=== PATIENT | male | born 1980 | race Caucasian/White ===

== ENCOUNTER 2020-03-08 03:55 | Emergency (ER) | payer MEDICAID ==
[~2020-03-08] VITALS: Ht 165.1 cm; Wt 79.4 kg
[2020-03-08 04:03] VITALS: BP 136/71
[2020-03-08] MEDS ORDERED: HYDROcodone/APAP 5/325 MG 1 TAB TAB PO ONE (06:10)
[2020-03-08] MEDS ORDERED: FLUORESCEIN OPTH STRIP 1 MG OP ONE (06:10)
[2020-03-08] MEDS ORDERED: TETRACAINE HCL/PF 0.5% OPTH 4 ML BTL OP ONE (06:10)
[2020-03-08] MEDS ORDERED: ERYTHROMYCIN 0.5% OPTH OINT 1 GM TUBE OP ONE (06:10)
[2020-03-08 07:00] VITALS: BP 134/78
== END 2020-03-08 07:00 | disposition home or self-care (01) ==
LOC: MED 03:55
DX: H57.11 Ocular pain, right eye (principal); H02.843 Edema of right eye, unspecified eyelid; Z71.6 Tobacco abuse counseling
CPT/HCPCS: 99291

== ENCOUNTER 2021-05-12 03:04 | Emergency (ER) | payer MEDICAID ==
[~2021-05-12] VITALS: Ht 165.1 cm; Wt 78.0 kg
[2021-05-12 03:14] VITALS: BP 131/77
--- NOTE | 2021-05-12 03:15 | NUR ---
SEE COMPLETE ASSESSMENT. PATIENT AMBUALTED TO LOBBY WITH STEADY GAIT.
[2021-05-12] MEDS ORDERED: SULF-59 PO (04:20)
[2021-05-12] MEDS ORDERED: BETA1CRE5 TP (04:20)
[2021-05-12] MEDS ORDERED: SULFAMETH/TRIMETH DS 800/160MG 1 TAB PO ONE (04:20)
[2021-05-12] MEDS ORDERED: IBUPROFEN 800 MG TAB PO ONE (04:20)
[2021-05-12] MEDS ORDERED: SULFAMETH/TRIMETH DS 800/160MG 1 TAB ONE (05:24)
[2021-05-12] MEDS ORDERED: IBUPROFEN 800 MG TAB ONE (05:24)
[2021-05-12 05:35] VITALS: BP 128/82
--- NOTE | 2021-05-12 05:35 | NUR ---
Patient discharged with v/s stable. Written and verbal after care instructions given and explained. Patient alert, oriented and verbalized understanding of instructions. Ambulatory with steady gait. All questions addressed prior to discharge. ID band removed. Patient advised to follow up with PMD. Rx of BACTRIM, CLOTRIMAZOLE/BETAMETHASONE CRM given. Patient educated on indication of medication including possible reaction and side effects. Opportunity to ask questions provided and answered.
== END 2021-05-12 05:35 | disposition home or self-care (01) ==
LOC: MED 03:04
DX: L03.116 Cellulitis of left lower limb (principal); B35.2 Tinea manuum
CPT/HCPCS: 99283

== ENCOUNTER 2021-05-26 03:10 | Emergency (ER) | payer MEDICAID ==
[~2021-05-26] VITALS: Ht 165.1 cm; Wt 78.0 kg
[~2021-05-26 03:10] MED LIST: BETA1CRE5 TP; SULF-59 PO
[2021-05-26 03:42] VITALS: BP 134/68
[2021-05-26] MEDS ORDERED: LIDOCAINE 2% 1000 MG/50 ML VIAL INJ ONE (03:50)
[2021-05-26] MEDS ORDERED: BETA1CRE2 TP (03:53)
[2021-05-26] MEDS ORDERED: ACYC400T14 PO (04:18)
--- NOTE | 2021-05-26 04:30 | NUR ---
DR. PURVIS EXAMINING PT IN TRIAGE AND TREATING. PT TOLERATING PROCEDURE WELL
[2021-05-26] MEDS ORDERED: ACYCLOVIR 200 MG CAP ONE (04:49)
[2021-05-26] MEDS ORDERED: HYDROcodone/APAP 5/325 MG 1 TAB TAB PO ONE (04:55)
[2021-05-26] MEDS ORDERED: ACYCLOVIR 200 MG CAP PO ONE (04:55)
[2021-05-26] MEDS ORDERED: IBUPROFEN 800 MG TAB PO ONE (04:55)
[2021-05-26 05:00] VITALS: BP 134/68
--- NOTE | 2021-05-26 05:00 | NUR ---
Patient discharged with v/s stable. Written and verbal after care instructions given and explained. Patient alert, oriented and verbalized understanding of instructions. Ambulatory with steady gait. All questions addressed prior to discharge. ID band removed. Patient advised to follow up with PMD. Rx of ZOVIRAX given. Patient educated on indication of medication including possible reaction and side effects. Opportunity to ask questions provided and answered.
[2021-05-26] MEDS ORDERED: SULF-59 PO (05:50)
== END 2021-05-26 05:00 | disposition home or self-care (01) ==
LOC: MED 03:10
DX: N47.2 Paraphimosis (principal); L02.416 Cutaneous abscess of left lower limb
CPT/HCPCS: 54450; 99284; J2001

== ENCOUNTER 2021-08-21 02:32 | Emergency (ER) | payer MEDICAID ==
[~2021-08-21] VITALS: Ht 165.1 cm; Wt 77.1 kg
[~2021-08-21 02:32] MED LIST changes: +ACYC400T14 PO; +BETA1CRE2 TP; -BETA1CRE5 TP
[2021-08-21 02:40] VITALS: BP 117/60
[2021-08-21] MEDS ORDERED: FLUORESCEIN OPTH STRIP 1 MG ONE (03:44)
[2021-08-21] MEDS: TETRACAINE HCL/PF 0.5% OPTH 4 ML BTL OP ONE (03:47)
[2021-08-21] MEDS: ERYTHROMYCIN 0.5% OPTH OINT 1 GM TUBE OP ONE (03:55)
[2021-08-21] MEDS ORDERED: KETO5SOL OP (04:10)
[2021-08-21] MEDS ORDERED: TOBR5SOL17 LEFT EYE (04:10)
== END 2021-08-21 04:30 | disposition home or self-care (01) ==
LOC: MED 02:32
DX: S05.02XA Injury of conjunctiva and corneal abrasion without foreign body, left eye, initial encounter (principal); Z79.899 Other long term (current) drug therapy; V86.59XA Driver of other special all-terrain or other off-road motor vehicle injured in nontraffic accident, initial encounter; Y93.89 Activity, other specified; Y92.89 Other specified places as the place of occurrence of the external cause; Y99.8 Other external cause status
CPT/HCPCS: 99283

== ENCOUNTER 2021-08-29 01:05 | Emergency (ER) | payer MEDICAID ==
[~2021-08-29] VITALS: Ht 157.5 cm; Wt 76.7 kg
[~2021-08-29 01:05] MED LIST changes: +KETO5SOL OP; +TOBR5SOL17 LEFT EYE
[2021-08-29 01:12] VITALS: BP 116/86
[2021-08-29] MEDS ORDERED: TETRACAINE HCL/PF 0.5% OPTH 4 ML BTL OP ONE (02:25)
[2021-08-29] MEDS ORDERED: FLUORESCEIN OPTH STRIP 1 MG OP ONE (02:25)
[2021-08-29] MEDS ORDERED: KETOROLAC 30 MG/ML VIAL IM ONE (02:25)
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
--- NOTE | 2021-08-29 03:31 | NUR ---
[place] MOTHER CALLED FOR UPDATE
--- NOTE | 2021-08-29 03:42 | NUR ---
MEDICATIONS GIVEN TO ERMD FOR MEDICATION TO ADMINISTER
[2021-08-29] MEDS ORDERED: TOMOMETER 1 DEV DEV MC ONE (04:12)
--- NOTE | 2021-08-29 04:13 | NUR ---
mother called for update
[2021-08-29] MEDS ORDERED: NAPR-54 PO (04:36)
[2021-08-29] MEDS ORDERED: TOBR5SOL17 LEFT EYE (04:36)
[2021-08-29] MEDS ORDERED: ACET-8386 PO (04:36)
[2021-08-29 05:06] VITALS: BP 121/59
--- NOTE | 2021-08-29 05:06 | NUR ---
Patient discharged. Written and verbal after care instructions given and explained. Patient alert, oriented and verbalized understanding of instructions. Ambulatory with steady gait. All questions addressed prior to discharge. ID band removed. Patient advised to follow up with PMD. Rx of Hydrocodon-Acetaminophen 5-325, Naproxen, Aktob 5Ml given. Patient educated on indication of medication including possible reaction and side effects. Opportunity to ask questions provided and answered.
--- NOTE | 2021-08-29 05:08 | NUR ---
offered patient an Uber ride home, denied. informed that patient will walk home.
--- NOTE | 2021-08-29 06:49 | NUR ---
The patient's care was reviewed and supervised by Christina Dennison RN. Chart checked.
== END 2021-08-29 05:06 | disposition home or self-care (01) ==
LOC: MED 01:05
DX: H10.32 Unspecified acute conjunctivitis, left eye (principal); Z79.899 Other long term (current) drug therapy; Z79.1 Long term (current) use of non-steroidal anti-inflammatories (NSAID); Z79.891 Long term (current) use of opiate analgesic; Z79.2 Long term (current) use of antibiotics
CPT/HCPCS: 96372; 99284; J1885

== ENCOUNTER 2023-01-31 21:51 | Emergency (ER) | payer MEDICAID ==
[~2023-01-31] VITALS: Ht 165.1 cm; Wt 77.1 kg
[~2023-01-31 21:51] MED LIST changes: +ACET-8905 PO; +NAPR-54 PO; -TOBR5SOL17 LEFT EYE; +TOBR5SOL38 LEFT EYE
[2023-01-31 22:06] VITALS: BP 124/78; PULSE 86; RESP 16; TEMP 97.7; O2SAT 99
== END 2023-01-31 22:44 | disposition left against medical advice (07) ==
LOC: MED 21:51
DX: R10.30 Lower abdominal pain, unspecified (principal); Z53.21 Procedure and treatment not carried out due to patient leaving prior to being seen by health care provider
CPT/HCPCS: 99281